=== PATIENT | female | born 1965 | race Caucasian/White ===

== ENCOUNTER 2017-09-15 00:12 | Outpatient (CLI) | payer MEDICAID, SELFPAY ==
--- NOTE | 2017-09-15 10:51 | DI.REPORT_ITS ---
SYMPTOMS/DIAGNOSIS: SCREENING, Z12.31, PREVENTATIVE CARE, Z00.00, FAMILY H/O BREAST CA, Z80.3 MAMMOGRAMS: Mammograms were interpreted according to the usual protocol including computer analysis with CAD system, tomosynthesis and C view imaging. Comparison is with prior mammograms. No masses or microcalcifications are seen. There is a biopsy clip again seen in the upper outer quadrant of the left breast. The skin and axillae are unremarkable. IMPRESSION: No evidence for malignancy. Yearly mammography is recommended. Category 1, breast density C. MQSA ASSESSMENT OF FINDINGS: Negative. Category 1. Patient will receive a letter notifying them of these results. Bi-RADS category C. The breasts are heterogeneously dense, which may obscure small masses.
== END 2017-09-15 00:13 ==
PROVIDERS: PCP Nurse Practitioner; Visit Provider Nurse Practitioner
DX: Z12.31 Encounter for screening mammogram for malignant neoplasm of breast (principal); Z80.3 Family history of malignant neoplasm of breast
CPT/HCPCS: 77063; 77067

== ENCOUNTER 2018-10-03 00:12 | Outpatient (CLI) | payer MEDICAID, SELFPAY ==
--- NOTE | 2018-10-03 09:50 | DI.MAMMO_ITS ---
SYMPTOMS/DIAGNOSIS: FAMILY H/O BREAST CA, Z80.3, SCREENING MAMMOGRAM: Mammograms were interpreted according to the usual protocol including computer analysis with CAD system, tomosynthesis and C view imaging. The breasts are heterogeneously dense. No dominant mass or clumped microcalcification identified in either breast. Current examination is compared with the previous examinations including September 2017 and there has been no gross interval change in appearance in comparison with the previous studies. CONCLUSION: No specific evidence of malignancy at this time. Routine screening examinations are suggested at yearly intervals due to the family history of breast carcinoma. Category 1, breast density category C. MQSA ASSESSMENT OF FINDINGS: Negative. Category 1. Patient will receive a letter notifying them of these results. Bi-RADS category C. The breasts are heterogeneously dense, which may obscure small masses.
== END 2018-10-03 00:32 ==
PROVIDERS: PCP Nurse Practitioner Family; Visit Provider Nurse Practitioner Family
DX: Z12.31 Encounter for screening mammogram for malignant neoplasm of breast (principal); Z80.3 Family history of malignant neoplasm of breast
CPT/HCPCS: 77063; 77067

== ENCOUNTER 2019-10-07 00:30 | Outpatient (CLI) | payer MEDICAID, SELFPAY ==
--- NOTE | 2019-10-07 | DI.MAMMO_ITS ---
EXAM: MAMMO SCREENING CLINICAL HISTORY: SCREENING,Z12.31 TECHNIQUE: Mammograms were interpreted according to the usual protocol including computer analysis w [employer] CAD system, tomosynthesis and C-view imaging. COMPARISON: FINDINGS: The breasts are heterogeneously dense. No dominant mass or clumped microcalcification is identified in either breast. The current examination is compared previous examinations including September 2018 an d there has been no gross interval change in appearance comparison the previous studies. An apparent biopsy clip is again seen in the upper outer quadrant of the left breast. IMPRESSION: No specific evidence of malignancy at this time. Routine screening examinations are suggested at yea rly intervals due to the family history of breast carcinoma. BI-RADS Category 1 - Negative Breast Density - Category C - Heterogeneously dense
== END 2019-10-07 00:50 ==
PROVIDERS: PCP Nurse Practitioner Family
DX: Z12.31 Encounter for screening mammogram for malignant neoplasm of breast (principal); R92.2 Inconclusive mammogram
CPT/HCPCS: 77063; 77067

== ENCOUNTER 2019-10-23 17:53 | Outpatient (REF) | payer MEDICAID, SELFPAY ==
--- NOTE | 2019-10-23 16:20 | PAPFT_PTH ---
PATIENT: Noemi London LOC: [facility]#:[id number] AGE/SX: 54/F ROOM: RE10/23/[address]: Minerva Cuellar : 1965 BED: DIS: 10/23/2019 SPEC #: [id number] RECD: 10/24/19 12:58 STATUS: PAULINA RENia #: [id number] RADHA: 10/23/19 16:[address]: Minerva Cuellar DEPT: [facility] Cytology RECD BY: Clare Painting Tissues: 1 - CX/ENDOCX FOR PAP SMEARS Procedures: PAP THIN PREP/UVM Screening Comments: [id number]
== END 2019-10-23 18:13 ==
LOC: NCHCN 17:53
PROVIDERS: PCP Nurse Practitioner Family; Visit Provider Nurse Practitioner Family
DX: Z12.4 Encounter for screening for malignant neoplasm of cervix (principal)
CPT/HCPCS: 88142

== ENCOUNTER 2020-04-22 13:30 | Outpatient (CLI) | payer MEDICAID, SELFPAY ==
--- NOTE | 2020-04-22 | DI.US_ITS ---
EXAM: US PELVIS TRANSVAGINAL CLINICAL HISTORY: RETAINED FOREIGN BODY Z18.9. TECHNIQUE: Transabdominal and transvaginal pelvic ultrasound was performed using standard protocol. COMPARISON: No exams were available for comparison FINDINGS: KIDNEYS: Kidneys are symmetric in size. No evidence of renal calculi. No evidence of hydronephrosis. No renal mass or cyst identified. UTERUS: Position: Anteverted. Size: 5.3 long by 3.2 AP by 3.9 transverse cm Endometrium: 0.6 cm. Normal for patient's menstrual status. Myometrium: Unremarkable. Cervix: Unremarkable. Other: There is a 0.7 cm linear echogenic focus in the lower uterine segment of the endometrial canal suspicious for retained foreign body. OVARIES: Right: 1.4 x 1 x 1.7 cm Cyst or mass: None. Left: 1.3 x 1 x 0.8 cm Cyst or mass: None. DOPPLER: Color: Symmetric and uniform flow to both ovaries. No hyperemia. Duplex: Normal ovarian arterial waveforms visualized. CUL-DE-SAC: Free fluid: None. Other: None. IMPRESSION: 1. There is a 0.7 cm linear echogenic focus in the lower uterine segment of the endometrial canal. T his is suspicious for a retained component of the IUD. 2. Normal sonographic appearance of the kidneys. 3. Normal-appearing uterus with endometrial stripe within normal limits. 4. Unremarkable bilateral ovaries. DATA REPOSITORY:
== END 2020-04-22 13:50 ==
PROVIDERS: PCP Nurse Practitioner Family; Visit Provider Nurse Practitioner Family
DX: Z18.89 Other specified retained foreign body fragments
CPT/HCPCS: 76830; 76856

== ENCOUNTER 2020-10-07 01:08 | Outpatient (CLI) | payer MEDICAID, SELFPAY ==
--- NOTE | 2020-10-07 | DI.MAMMO_ITS ---
Exam(s) MAMMO SCREENING EXAM: MAMMO SCREENING CLINICAL HISTORY: SCREENING, Z12.31. TECHNIQUE: Bilateral full field digital CC and MLO mammographic images were obtained with 3D tomosyn thesis and utilizing computer aided detection (CAD). COMPARISON: Prior mammograms dating back to 2013, the most recent being September 2019. FINDINGS: Biopsy marker clip again noted in the upper quadrant of the left breast with no new findings in this immediate vicinity. There are no new spiculated masses nor malignant appearing microcalcification groups. There is no significant architectural distortion nor skin thickening-retraction. IMPRESSION: No radiographic evidence of malignancy. BI-RADS Category 1 - Negative Breast Density - Category B - Scattered areas of fibroglandular density Breast density Category C or D implies that the patient has dense breast tissue. Dense breast tissue can make it harder to find cancer on a mammogram. Dense breast tissue is also associated with an incr eased risk of breast cancer. This information about the result of the mammogram report was provided to the patient to raise their awareness. Use this report when you speak with the patient about their risks for breast cancer, which includes their family history. At that time, you may recommend additional screening tests (Ultrasoun d or MRI) as these tests may add significant information. A negative radiographic report should not delay biopsy if a dominant or clinically suspicious mass is present. Up to ten percent of cancers are not identified on mammography. A negative report may reinforce clinical impression. Adenosis and dense breasts may obscure an underlying neoplasm. False positive reports average 6 to 10%. Patient will receive a letter notifying them of these results.
== END 2020-10-07 01:28 ==
PROVIDERS: PCP Nurse Practitioner Family; Visit Provider Nurse Practitioner Family
DX: Z12.31 Encounter for screening mammogram for malignant neoplasm of breast (principal)
CPT/HCPCS: 77063; 77067

== ENCOUNTER 2021-11-03 10:18 | Outpatient (REF) | payer MEDICAID, SELFPAY ==
[2021-11-03 15:45] LABS: HCT 39.9 % (36.0-46.0); HGB 12.6 g/dL (11.2-15.7); MCH 28.6 pg (27.0-33.0); MCHC 31.6 % (32.0-36.0); MCV 91 fL (80-95); MPV 11.2 fL (8.0-11.0); Platelet Count 315 10^3/uL (130-400); RBC 4.41 10^6/uL (3.93-5.22); RDW 13.8 % (11.7-14.6); RDW-SD 45.8 fL; WBC 5.64 10^3/uL (4.4-10.8)
[2021-11-03 16:21] LABS: ALT 20 U/L (14-59); AST 18 U/L (15-37); Alkaline Phosphatase 78 U/L (46-116); Anion Gap 7.7 mmol/L (3-11); BUN 12 mg/dL (7-18); Bilirubin, Total 0.6 mg/dL (0.2-1.0); CO2 30.3 mmol/L (21.0-32.0); CREATININE 0.7 mg/dL (0.55-1.02); Calcium 9.4 mg/dL (8.5-10.1); Calculated LDL 107 mg/dL (<100); Chloride 102 mmol/L (98-107); Cholesterol 227 mg/dL (<200); Estimated GFR 100.81 (mL/min/1.73m2); Glucose 95 mg/dL (74-106); HDL Cholesterol 108 mg/dL (40-60); Potassium 4.3 mmol/L (3.5-5.1); Sodium 140 mmol/L (136-145); Total Protein 7.1 g/dL (6.4-8.2); Triglyceride 60 mg/dL (<150)
== END 2021-11-03 10:19 | disposition home or self-care (01) ==
LOC: NCHCN 10:18
PROVIDERS: PCP Nurse Practitioner Family; Visit Provider Nurse Practitioner Family
DX: Z13.220 Encounter for screening for lipoid disorders (principal); Z13.228 Encounter for screening for other metabolic disorders; Z13.0 Encounter for screening for diseases of the blood and blood-forming organs and certain disorders involving the immune mechanism; Z00.00 Encounter for general adult medical examination without abnormal findings
CPT/HCPCS: 80053; 80061; 85027

== ENCOUNTER → 2021-11-17 01:20 | Outpatient (CLI) | payer MEDICAID, SELFPAY ==
--- NOTE | 2021-11-17 12:37 | DI.MAMMO_ITS ---
Exam(s) MAMMO SCREENING EXAM: MAMMO SCREENING CLINICAL HISTORY: SCREENING, Z12.31 TECHNIQUE: Mammograms were interpreted according to the usual protocol including computer analysis w Stereomood CAD system, tomosynthesis and C-view imaging. COMPARISON: 2013 through 2020 FINDINGS: The breasts are composed of scattered fibroglandular densities, Breast Density category B. No suspicious masses or suspicious microcalcifications are seen. A biopsy marker clip is again noted in the upper outer quadrant of the left breast. No skin thickening or abnormal axillary lymph nodes are seen. There has been no significant change from prior exams. IMPRESSION: BI-RADS Category 1, Negative mammogram Yearly screening mammography is recommended. Breast Density - Category B, scattered fibroglandular densities. A negative radiographic report should not delay biopsy if a dominant or clinically suspicious mass is present. Up to ten percent of cancers are not identified on mammography. A negative report may reinforce clinical impression. Adenosis and dense breasts may obscure an underlying neoplasm. False positive reports average 6 to 10%. Patient will receive a letter notifying them of these results.
== END ==
PROVIDERS: PCP Nurse Practitioner Family; Visit Provider Nurse Practitioner Family
DX: Z12.31 Encounter for screening mammogram for malignant neoplasm of breast (principal)
CPT/HCPCS: 77063; 77067

== ENCOUNTER 2022-11-04 14:08 | Outpatient (REF) | payer OTHER, SELFPAY ==
--- NOTE | 2022-11-04 08:46 | PAPFT_PTH ---
PATIENT: Noemi London LOC: [facility]#:[id number] AGE/SX: 57/F ROOM: RE11/04/[address]: Minerva Cuellar : 1965 BED: DIS: 11/04/2022 SPEC #: [id number] RECD: 11/04/22 16:58 STATUS: PAULINA RENia #: [id number] RADHA: 11/04/22 08:[address]: Minerva Cuellar DEPT: [facility] Cytology RECD BY: Clare Painting Tissues: 1 - CX/ENDOCX FOR PAP SMEARS Procedures: PAP THIN PREP/UVM Screening HPV DNA PROBE Comments: [id number] (CHLAMYDIA/GC)
[2022-11-04 14:25] LABS: HCT 43.1 % (36.0-46.0); HGB 14.2 g/dL (11.2-15.7); MCH 29.3 pg (27.0-33.0); MCHC 32.9 % (32.0-36.0); MCV 89 fL (80-95); MPV 10.9 fL (8.0-11.0); Platelet Count 323 10^3/uL (130-400); RBC 4.84 10^6/uL (3.93-5.22); RDW 13.4 % (11.7-14.6); RDW-SD 44.1 fL; WBC 7.16 10^3/uL (4.4-10.8)
[2022-11-04 14:34] LABS: ALT 25 U/L (14-59); AST 14 U/L (15-37); Albumin 4.1 g/dL (3.4-5.0); Alkaline Phosphatase 81 U/L (46-116); Anion Gap 7.1 mmol/L (3-11); BUN 20 mg/dL (7-18); Bilirubin, Total 0.7 mg/dL (0.2-1.0); CO2 29.9 mmol/L (21.0-32.0); CREATININE 0.7 mg/dL (0.55-1.02); Calcium 9.9 mg/dL (8.5-10.1); Calculated LDL 135 mg/dL (<100); Chloride 100 mmol/L (98-107); Cholesterol 247 mg/dL (<200); Estimated GFR 100.19 (mL/min/1.73m2); Glucose 95 mg/dL (74-106); HDL Cholesterol 96 mg/dL (40-60); Potassium 4.7 mmol/L (3.5-5.1); Sodium 137 mmol/L (136-145); Total Protein 7.2 g/dL (6.4-8.2); Triglyceride 80 mg/dL (<150)
[2022-11-07 12:55] LABS: Chlamydia Result Negative (Negative); GC Result Negative (Negative)
== END 2022-11-04 14:09 | disposition home or self-care (01) ==
LOC: NCHCN 14:08
PROVIDERS: PCP Nurse Practitioner Family; Visit Provider Nurse Practitioner Family
DX: Z00.00 Encounter for general adult medical examination without abnormal findings (principal); Z13.0 Encounter for screening for diseases of the blood and blood-forming organs and certain disorders involving the immune mechanism; Z13.1 Encounter for screening for diabetes mellitus; Z13.220 Encounter for screening for lipoid disorders; Z13.228 Encounter for screening for other metabolic disorders; Z12.4 Encounter for screening for malignant neoplasm of cervix; Z11.51 Encounter for screening for human papillomavirus (HPV)
CPT/HCPCS: 80053; 80061; 85027; 87491; 87591; 88142; 83036; 87624

== ENCOUNTER → 2022-11-21 02:34 | Outpatient (CLI) | payer OTHER, SELFPAY ==
--- NOTE | 2022-11-21 | DI.MAMMO_ITS ---
Exam(s) MAMMO SCREENING EXAM: MAMMO SCREENING CLINICAL HISTORY: SCREENING, Z12.31 TECHNIQUE: Mammograms were interpreted according to the usual protocol including computer analysis w Bright[employer]md CAD system, tomosynthesis and C-view imaging. COMPARISON: 2013 through 2021 FINDINGS: The breasts are composed of scattered fibroglandular densities, Breast Density category B. No suspicious masses or suspicious microcalcifications are seen. A biopsy marker is again noted in t he upper outer quadrant. No skin thickening or abnormal axillary lymph nodes are seen. There has been no significant change from prior exams. IMPRESSION: BI-RADS Category 1, Negative mammogram Yearly screening mammography is recommended. Breast Density - Category B, scattered fibroglandular densities. A negative radiographic report should not delay biopsy if a dominant or clinically suspicious mass is present. Up to ten percent of cancers are not identified on mammography. A negative report may reinforce clinical impression. Adenosis and dense breasts may obscure an underlying neoplasm. False positive reports average 6 to 10%. Patient will receive a letter notifying them of these results.
== END ==
PROVIDERS: PCP Nurse Practitioner Family; Visit Provider Nurse Practitioner Family
DX: Z12.31 Encounter for screening mammogram for malignant neoplasm of breast (principal)
CPT/HCPCS: 77063; 77067

== ENCOUNTER 2023-11-23 17:34 | Outpatient (REF) | payer OTHER, SELFPAY ==
--- OUTSIDE RECORDS SUMMARY | 2023-11-23 17:53 | XMS_ITS | Encounter Summary ---
Author Organization [facility] Address [address] [place] [address] Care Team Providers Care Graffiti Cleaner Name Role Phone Unavailable Primary Care Provider Unavailabl e Encounter Details Date Type Department Care Team (Latest Contact Info) Description 10/25/2019 Lab Requisition [facility] Pathology & Laboratory Medicine - [facility] [address] [place] [address] Minerva Cuellar FNP [address] [place] [phone] Encounter for general adult medical examination without abnormal findings; Encounter for screening for malignant neoplasm of cervix; Encounter for gynecological examination (general) (routine) without abnormal findings Social History Tobacco Use Types Packs/Day Years Used Date Smoking Tobacco: Never Assessed Sex and Gender Information Value Date Recorded Sex Assigned at Not on file Gender Identity Not on file Sexual Orientation Not on file documented as of this encounter Plan of Treatment Not on file documented as of this encounter Procedures Procedure Name Priority Date/Time Associated Diagnosis Comments PAP TEST Today 10/23/2019 16:20 EDT Encounter for general adult medical examination without abnormal findings Encounter for screening for malignant neoplasm of cervix Encounter for gynecological examination (general) (routine) without abnormal findings documented in this encounter Results * PAP TEST (10/23/2019 16:20 EDT) Specimens A. Cervix and/or Endocervix , ThinPrep Imaging System with Manual Evaluation 10/31/2019 15:34 EDT [facility] Specimen Adequacy Satisfactory for Evaluation - transformation zone component present 10/31/2019 15:34 EDT [facility] General Categorization Negative for intraepithelial lesion or malignancy 10/31/2019 15:34 EDT [facility] Attestation . 10/31/2019 15:34 EDT [facility] at 1534 Clinical History SEE ORDER COMMENTS 10/31/2019 15:34 EDT [facility] Performing Lab [facility] 10/31/2019 15:34 EDT [facility] Scanned Images 10/31/2019 15:34 EDT [facility] Papanicolaou smear specimen (specimen) CERVIX UTERI STRUCTURE / Unknown 10/23/2019 16:20 EDT 10/25/2019 11:56 EDT Minerva MARIE PATHOLOGY ORDERABLES [facility] [address] [place] [address] documented in this encounter Visit Diagnoses Diagnosis Encounter for general adult medical examination without abnormal findings Unspecified general medical examination Encounter for screening for malignant neoplasm of cervix Screening for malignant neoplasm of the cervix Encounter for gynecological examination (general) (routine) without abnormal findings documented in this encounter
--- OUTSIDE RECORDS SUMMARY | 2023-11-23 17:53 | XMS_ITS | Encounter Summary ---
Author Organization [facility] [place] [address] Care Team Providers Care Chief Commercial Officer Name Role Phone Rae Knight APRN Primary Care Provider + Reason for Visit * Reason Comments Skin Check * Consultation (Routine) - Specialty Diagnoses / Procedures Referred By Luly irizarry Referred To Contact Dermatology Diagnoses Other specified disorders of the skin and subcutaneous tissue Skin Lesions, Multiple Procedures Consult Rae Knight APRN [address] [place] [address] [facility] [address] [place] [address] Referral ID Status Reason Start Date Expiration Date V isits Requested Visits Authorized [id number] 06/21/2017 06/21/2018 1 1 Encounter Details Date Type Department Care Team (Late st Contact Info) Description 08/14/2017 9:30 AM EDT Office Visit Dermatology at [facility] [address] [place] [address] Call, Jose Alberto Covington MD [facility] [address] [place] [address] Neoplasm of uncertain behavior of skin Social History Tobacco Use Types Packs/Day Years Used Date Smoking Tobacco: Never Smokeless Tobacco: Never Sex and Gender Information Value Date Recorded Sex Assigned at Not on file Gender Identity Not on file Sexual Orientation Not on file documented as of this encounter Patient Instructions * Patient Instructions* HaSarah covingtonLOY lopez - 08/14/2017 9:30 AM EDT You had a biopsy of your skin (removal of a small piece of tissue for examination under a microscope). Keep area covered and moist with a band aid and Vaseline, change daily. The results will be available in about 7 days. Your doctor or nurse will tell you the results by phone or letter and plan any follow up treatment if necessary. documented in this encounter Progress Notes * Jose Alberto Costello - 08/22/2017 4:20 PM EDT Notified patient of results. Recommend wide local excision. Informed patient that they would be contacted for surgery Ammon Costello MD * Jose Alberto Costello - 08/14/2017 9:30 AM EDT Images from the original note were not included. DERMATOLOGY - NEW PATIENT NOTE Date of service: 08/14/2017 Noemi London : 1965, 52 y.o. Chief Complaint: Chief Complaint Patient presents with ??? Skin Check HPI: Noemi London is a 52 y.o. female with no significant past medical history pa referred byRae Knight with the following concerns: She requests a full skin exam. She has a pigmented papule on the right thigh that has been there over a year. It has been itchy at times but no bleeding or pain. There has been no treatment.She gets little white papules on the face under the eyes that are not tender. She had a mole removed on the right upper thigh years ago in [place], states that there was not further care taken regarding the area. Relevant Skin History: - Okay to leave detailed message with results? 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 No current facility-administered medications for this visit. Allergies: No Known Allergies Review of Systems: - General: Feels well. - Skin: No other skin concerns. Examination: - Constitutional: Patient was alert, well-appearing and in no noticeable distress. - Skin: Skin examination of the scalp, face, ears, neck, back, chest, axillae, abdomen, right and left upper extremities, right and left lower extremities, hands, feet, and buttocks was normal with the exception of the findings listed below. Genitalia not examined. Diagnosis/Skin findings/Assessment/Plan: 1. Dermatofibroma - firm pink papule with peripheral pigmentation on the right lateral thigh - Reviewed benign nature of these skin lesions. No treatment necessary. If they become irritated, punch removal is an option but would be trading the papule for a scar. - Patient opted for no treatment at this time. 2. Dysplastic Nevus vs. Melanoma - 6 mm pigmented macule, Left upper midline back, irregular pigment network on dermoscopy. -Joint decision to pursue biopsy at this time to further evaluate etiology. Shave??Biopsy Procedure Note:?? Location: left upper midline back The patient's consent was obtained. Risk of infection, scarring, nerve damage, pigment change, numbness, incomplete removal, recurrence, bleeding, pain and uncommonly so, allergic reaction to anesthesia were all reviewed. Alcohol preparation was used. Anesthesia obtained with 0.5% lidocaine without epinephrine. A??shave biopsy was obtained and the specimen was sent to pathology for histologic evaluation.??Hemostasis obtained. (AlCl and/or electrocautery). ??Vaseline and bandaid were applied. Wound care was reviewed.There were no complications; the pt. tolerated the procedure well. 3. Milia: Scattered white to yellow papules on the cheeks Asymptomatic. Counseled: Benign cysts. Usually self-resolve in months. Treatment options including but not limited to OTC milia extractor, topical retinoids, or cosmetic removal in the office (often not covered byinsurance) by milia extractor, incision and enucleation, cryotherapy, electrocautery. Answered all questions. Patient elects to try removal at home with OTC milia extractor. RTC: Pending biopsy results The following photos were obtained with patient consent: Note initiated by MARLI NG LPN. I performed the above scribed service and agree with the accuracy of the documentation in this encounter. Reviewed and signed by Jose Alberto Costello MD Resident in Dermatology [facility] Patient seen in conjunction with staff dry goods clerk: Raheel Palm MD Section of Dermatology [facility] * Raheel Palm MD - 08/14/2017 9:30 AM EDT I directly supervised Dr. Costello in the care of this patient. I saw and evaluated this patient with Dr. Costello. He presented the history and physical exam details to me, then we saw the patient together and I confirmed these findings. I agree with details as written. My physical examination confirms Dr. Costello's findings. The assessment and plan were formulated in discussion with me at the time of visit and I agree withthem as documented. RAHEEL PALM MD FAAD Staff Physician documented in this encounter Plan of Treatment Not on file documented as of this encounter Procedures Procedure Name Priority Date/Time Associated Diagnosis Comments SURGICAL PATHOLOGY REPORT Routine 08/14/2017 10:07 AM EDT SPECIMEN TO PATHOLOGY Routine 08/14/2017 10:07 AM EDT Neoplasm of uncertain behavior of skin documented in this encounter Results * Surgical Pathology Report (08/14/2017 10:07 AM EDT) Final Diagnosis [id number] ? Location: [facility] The signing pathologist has (i) examined the relevant preparation(s) for the specimen(s) and (ii) rendered or confirmed the diagnosis(es). . ?Surgical Pathology DIAGNOSIS Skin, left upper midline back, shave biopsy: ?? Atypical lentiginous junctional melanocytic proliferation, cannot exclude melanoma in situ airising in dysplastic nevus, extending close to the peripheral specimen edge and deep specimen edge along hair follicles (see discussion). Electronically signed by: ??Jr VELÁSQUEZ, PhD, Howiefercho Verified: ??08/17/2017 ?Dermatopathologist Performed at: ??-[facility] Dept. of Pathology, [place], [place] DISCUSSION The biopsy shows features of a background ?junctional dysplastic nevus, however, the melanocytes show lentiginous growth pattern with upwards pagetoid cells, ? melanoma in situ arising in dysplastic nevus cannot be excluded. ? This case was also reviewed by an additional intradepartmental dermatopathologist for consensus diagnosis. ADDITIONAL STUDIES Immunohistochemistry Studies: Formalin-fixed, paraffin-embedded tissue sections are studied using the polymer technique with appropriate positive and negative controls. ?These IHC studies provide the pathologist with adjunctive diagnostic information. Antibody specificity has been verified by testing antibodies on a series of in-house tissues with known immunohistochemical performance characteristics. The clinical interpretation of any antibody positive staining or its absence is evaluated within the context of clinical presentation, morphology, histopathological criteria and other diagnostic tests. Block ? Antibody ? Result (Positive/Negative) A1 ? Melan-A AEC ?Highlights melanocytes CLINICAL INFORMATION Specimen Submitted: A - Skin, left upper midline back, shave Clinical History and Diagnosis: 6 mm pigmented macule/atypical nevus vs melanoma SPECIMEN PROCESSING A - Labeled/Fixative: Patient demographics, formalin. Quantity/Size: Single, 1.0 x 0.7 x 0.1 cm. Tissue Description: Shave of white skin with a 0.6 x 0.5 cm brown macule. Sections/Processing: Inked and trisected. (T1) ??sns 08/17/2017 3:42 PM EDT [facility] SPECIMEN FROM SKIN / Unknown 08/14/2017 10:07 AM EDT 08/14/2017 10:07 AM EDT Jose Alberto Costello MD PATHOLOGY/CYTOLOGY O BENY Performing Organization Address [facility]/ZIP Co de Phone Number [facility] [place] [address] * Specimen to Pathology (08/14/2017 10:07 AM EDT) AP Specimen 08/14/2017 10:0 7 AM EDT 08/14/2017 1:15 PM EDT Narrative [facility] - 08/14/2017 1:15 PM EDT Specimen requisition ordered. ??Separate Pathology report to follow Resulting Agency Comment Spec In Lab Raheel Palm MD PATHOLOGY/CYTOLOGY O BENY Performing Organization Address [facility] [place] [address] documented in this encounter Visit Diagnoses Diagnosis Neoplasm of uncertain behavior of skin documented in this encounter Care Teams Chief Commercial Officer Relationship Specialty Start Date End Date Rae Knight APRN [address] [place] [address] PCP - General Family Medicine 06/21/17 11/03/20 documented as of this encounter
--- OUTSIDE RECORDS SUMMARY | 2023-11-23 17:53 | XMS_ITS | Clinical Summary ---
Author Organization [facility] Address [address] [place] [address] Care Team Providers Care Safety Deposit Clerk Name Role Phone Unavailable Primary Care Provider Unavailabl e Social History Tobacco Use Types Packs/Day Years Used Date Smoking Tobacco: Never Assessed Interpersonal Safety Answer Date Record ed Physically Hurt Never 01/07/2020 Verbally Threaten Not on file 01/07/2020 Sex and Gender Information Value Date Recorded Sex Assigned at Not on file Gender Identity Not on file Sexual Orientation Not on file Plan of Treatment Health Maintenance Due Date Last Done Comments Hepatitis C Screen 1965 Hepatitis B Vaccine (1 of 3 - 19+ 3-dose series) 02/24 COVID-19 Vaccine (2022- season) 2022
--- OUTSIDE RECORDS SUMMARY | 2023-11-23 17:53 | XMS_ITS | Referral Summary ---
Author Organization [facility] Address [address] [place] [address] Care Team Providers Care Industrial/Organizational Psychologist Name Role Phone Unavailable Primary Care Provider [...] Orientation Not on file Plan of Treatment Not on file
--- OUTSIDE RECORDS SUMMARY | 2023-11-23 17:53 | XMS_ITS | Encounter Summary ---
[place] [address] Care Team Providers Care Welding Systems And Equipment Repairer Name Role Phone Minerva Cuellar APRN Primary Care Provider [phone] Encounter Details Date Type Department Care Team (Latest Contact Info) Description 04/19/2022 Travel Social History Tobacco Use Types Packs/Day Years Used Date Smoking Tobacco: Never Smokeless Tobacco: Never Sex and Gender Information Value Date Recorded Sex Assigned at Not on file Gender Identity Not on file Sexual Orientation Not on file documented as of this encounter Plan of Treatment Not on file documented as of this encounter Visit Diagnoses Not on filedocumented in this encounter Care Teams Welding Systems And Equipment Repairer Relationship Specialty Start Date End Date Minerva Cuellar APRN [address] [place] [address] PCP - General Family Medicine 11/04/20 documented as of this encounter
--- OUTSIDE RECORDS SUMMARY | 2023-11-23 17:53 | XMS_ITS | Encounter Summary ---
Author Organization [facility] Address [facility] [place] [address] Care Team Providers Care Research Geologist Name Role Phone Rae Knight YURI Primary Care Provider + Encounter Details Date Type Department Care Team (Late st Contact Info) Description 08/22/2017 Telephone Dermatology at [facility] [address] [place] [id number] Call, Jose Alberto Rob MD [facility] [address] [place] [address] Social History Tobacco Use Types Packs/Day Years Used Date Smoking Tobacco: Never Smokeless Tobacco: Never Sex and Gender Information Value Date Recorded Sex Assigned at Not on file Gender Identity Not on file Sexual Orientation Not on file documented as of this encounter Miscellaneous Notes * Telephone Encounter - CallJoes Alberto - 08/22/2017 4:16 PM EDT Called patient to discuss the following biopsy results: Surgical Pathology DIAGNOSIS Skin, left upper midline back, shave biopsy: Atypical lentiginous junctional melanocytic proliferation, cannot exclude melanoma in situ airising in dysplastic nevus, extending close to the peripheral specimen edge and deepspecimenedge along hair follicles (see discussion). DISCUSSION The biopsy shows features of a background junctional dysplastic nevus, however, the melanocytes show lentiginous growth pattern with upwards pagetoid cells, melanoma in situarising indysplastic nevus cannot be excluded. This case was also reviewed by anadditional intradepartmental dermatopathologist for consensus diagnosis. We had a detailed discussion regarding the significance of these biopsy results. We first reviewed the etiology of a dysplastic nevus and then discussed that there is a general consensus that re-excision may not be necessary for atypical nevi with mild to moderate atypia. In contrast, patients withatypical nevi showing moderate to severe histologic atypia and positive biopsy margins such as hersmay benefit from re-excision to confirm the diagnosis and exclude melanoma. We discussed treatment options including observation vs. WLE, and joint decision to undergo wide local excision at this time. Scheduled follow up for 6 months for FBSE. documented in this encounter Plan of Treatment Not on file documented as of this encounter Visit Diagnoses Not on filedocumented in this encounter Care Teams Research Geologist Relationship Specialty Start Date End Date Rae Knight APRN [address] [place] [address] PCP - General Family Medicine 06/21/17 11/03/20 documented as of this encounter
--- OUTSIDE RECORDS SUMMARY | 2023-11-23 17:53 | XMS_ITS | Encounter Summary ---
Author Organization [facility] Address [facility] [place] [address] Care Team Providers Care Mixing And Molding Machine Operator Name Role Phone Minerva Cuellar APRN Primary Care Provider Reason for Visit * Consultation (Routine) - Closed Specialty Diagnoses / Procedures Referred By Contac t Referred To Contact Dermatology Diagnoses Disorder of the skin and subcutaneous tissue, unspecified DERMATOFIBROMA OF THE R HIP Minerva Cuellar APRN [address] [place] [address] [facility] Dermatology [address] [place] [address] Referral ID Status Reason Start Date Expiration Date V isits Requested Visits Authorized [id number] Closed Consult, [facility] PCP Updated and/or Approved 10/29/2020 10/29/2021 12 12 Encounter Details Date Type Department Care Team (Late st Contact Info) Description 01/18/2021 2:40 PM EST Office Visit Dermatology at [facility] [address] [place] [address] Jaya Kuo MD [facility] [address] [place] [address] AK (actinic keratosis); SK (seborrheic keratosis); Lin angioma; Dermatofibroma; Digital mucinous cyst Social History Tobacco Use Types Packs/Day Years Used Date Smoking Tobacco: Never Smokeless Tobacco: Never Sex and Gender Information Value Date Recorded Sex Assigned at Not on file Gender Identity Not on file Sexual Orientation Not on file documented as of this encounter Progress Notes * Jaya Kuo MD - 01/18/2021 2:40 PM EST Images from the original note were not included. DEPARTMENT OF DERMATOLOGY Medical Dermatology Clinic Provider: Jaya Kuo MD Patient's preferred name Noemi Preferred contact method for results []myDH []Letter []Phone: Y Detailed phone message OK? Y Are there any other people with whom we may discuss your care? Y PAST MEDICAL HISTORY If no, type N. If yes, type date, location, treatment Melanoma N Dysplastic nevi 09/13/2018 Severly dysplastic, S/P Excision upper back left of midline SCC N BCC N AKs N UV Exposure & Protection + history of blistering sunburn Other relevant past medical history (i.e. 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 If yes, include details below Allergy to lidocaine, epinephrine, Dermabond, chlorhexidine, or adhesives: N Bleeding disorder or blood thinners: N Implanted devices (Pacemaker, defibrillator, deep brain stimulator, cochlear implant): N History of Present Illness: Noemi London is a 55 y.o. year old. Patient returns to clinic today for evaluation of skin exam. -She has a lesion on the right upper thigh for ~5 years that is itchy otherwise not bothersome. Last visit at [facility] Derm: 04/18/2018 Last visit with this provider: Visit date not found Medications: Reviewed in eD-H Allergies: Reviewed in eD-H Skin Examination: Full skin examination: Patient asked to undress to their comfort level. Verbalized that the provider's preference is that patient removal all clothing and that the provider will not examine areas patient elects to keep covered. Examination of the scalp, hair, head, face, ears, neck, chest, axillae,abdomen, back, buttocks, and upper and lower extremities.Genitalia was not examined. Assessment/Plan # History Severe DN cannot exclude MIS. Left upper midline back, s/p excision 09/30 - Well healed linear scar - no clinical evidence of reoccurrence. #. Actinic Keratosis - Scaly irregular pink-brown papule located on nose X1 - Discussed etiology and treatment options with patient - Joint decision to pursue LN2 x 2 to lesion. Advised to return if lesion(s) do not resolve. Procedure Note: Procedure: Destruction of lesions with cryotherapy. Number: 1 Location: as above Discussed procedure and expectations including risks (including risk of hypopigmentation) and benefits. Verbal consent obtained. Frozen with LN2, 15-30 second thaw time, TWICE. There were no complications; the patient tolerated the procedure well. Post-procedure expectations and wound care were reviewed. #. Lin Angiomas - Multiple 0.2-0.4cm bright red, well-demarcated papules on the abdomen, chest, and back - Reassured of benign nature #. Solar lentigines EXAM: concentrated in sun-exposed areas (distal upper and lower extremities, shoulders, face), there are numerous, light brown macules with moth-eaten borders and homogeneous pigmentation. - Association with prior sun-exposure reviewed. - Recommend daily photoprotection with minimum SPF 30 or above, reapplied every 2 hours. #. Benign Nevi - Scattered medium-brown macules and papules on the trunk and extremities. - Reassured of benign appearance on exam today. - Reviewed ABCDEs of melanoma - Recommend daily sun protection with protective clothing and SPF 30+ #. Digital Mucus Cyst- subcutaneous soft papule overlying the joint on the left second digit Counseled: Benign cysts arises from degeneration in the connective tissue on left foot. Definitive management with surgery, but can also try ILK, cryotherapy or sclerotherapy. Handout given. -Joint decision to monitor; reassured #. Seborrheic Keratoses - Scattered brown and flesh colored waxy nummular stuck on plaques located on the trunk and extremities - Reassured of benign nature, return to clinic if these lesions become inflamed or irritating #. Dermatofibroma -scattered 0.3-0.5mm hyperpigmented papules with stellate center on dermoscopy and dimple sign on the right thigh X1& left shoulder X1 -pt reassured that this is a benign condition and no further intervention required Screening for Malignant Neoplasm - the ABCDEs of Melanoma were discussed with the patient. - patient advised on proper sun protection, use at least SPF 30 sunscreen preferably zinc or titanium oxide, avoid peak hours of the day between 10am-2pm when the sun is the brightest, wear sun-protective clothing. - recommended patient check skin regularly and return to discuss any concerning changes or new skinfindings. -apply sunscreen daily on the face, ears and neck and v-neck area Other items to document in the assessment/plan if relevant ??? Sun protection discussed (protective clothing and SPF30+ broad-spectrum sunscreen) RTC: 1 year for FSE []Note routed to tube buffer [x]Recall has been placed in scheduling system []Appointment scheduled at checkout I performed the above scribed service and agree with the accuracy of the documentation in this encounter. Reviewed and signed by: Jaya Kuo MD Dermatology [facility] Patient seen and evaluated with staff ornamental iron worker: Shelia Gutierrez MD Dermatology [facility] * Shelia Gutierrez MD - 01/18/2021 2:40 PM EST I directly supervised Dr. Kuo during this office visit. Dr. Kuo presented the history and physical exam to me. I then saw and examined this patient with Dr. Kuo . We reviewed the history and pertinent details and I confirmed the physical findings. I agree with the details of the history and physical exam as documented in Dr. Kuo's note. Shelia Gutierrez MD Staff Physician documented in this encounter Plan of Treatment Not on file documented as of this encounter Visit Diagnoses Diagnosis AK (actinic keratosis) Actinic keratosis SK (seborrheic keratosis) Other seborrheic keratosis Lin angioma Nevus, non-neoplastic Dermatofibroma Benign neoplasm of skin, site unspecified Digital mucinous cyst Ganglion, unspecified documented in this encounter Care Teams Mixing And Molding Machine Operator Relationship Specialty Start Date End Date Minerva Cuellar APRN [address] [place] [address] PCP - General Family Medicine 11/04/20 documented as of this encounter
--- OUTSIDE RECORDS SUMMARY | 2023-11-23 17:53 | XMS_ITS | Encounter Summary ---
Author Organization [facility] [place] [address] Care Team Providers Care Supervisor Electron Tube Processing Name Role Phone ChicaRae killian YURI Primary Care Provider + Reason for Visit * Reason Comments Procedure Encounter Details Date Type Department Care Team (Late st Contact Info) Description 09/13/2017 8:00 AM EDT Procedure visit Dermatology at [facility] [address] [place] [address] Alberto Palm MD [address] [facility] [place] [address] Dysplastic nevus (Primary Dx) Social History Tobacco Use Types Packs/Day Years Used Date Smoking Tobacco: Never Smokeless Tobacco: Never Sex and Gender Information Value Date Recorded Sex Assigned at Not on file Gender Identity Not on file Sexual Orientation Not on file documented as of this encounter Patient Instructions * Patient Instructions* Sarina Atkinson CMA - 09/13/2017 8:00 AM EDT Section of Dermatology POST OPERATIVE INSTRUCTIONS Wash your hand before changing the dressing. The dressing on the site should remain in place and dry until Monday The dressing should then be removed gently After removing the dressing, daily wound care should be performed as follows: Clean the wound with warm water and soap,then pat dry the area Apply either Vaseline or Aquaphor Ointment Cover the wound with a new dressing such as Telfa and Tape, or a Band-Aid Do not use peroxide or an antibiotic ointment /cream(Neosporin or Bacitracin) on the wound. For discomfort, you may take Tylenol or other non-aspirin pain medication for the first 48 hours, after 48 hours it is ok to switch to ibuprofen as needed. If bleeding should occur, pressure should be applied constantly for 15 minutes on the dressing withthe help of a towel, wash cloth, or piece of gauze. The sutures should be removed in 14 days. It is important that you avoid strenuous and/or vigorous activities, heavy lifting (More than 5-10 lbs), and bending for a period of 2 weeks If you have questions, please contact the office of Alberto Palm MD during the day at [phone] Nurse: Sarina After 5 PM and on weekends, please call the hospital number , and ask for the Teacher Specialist production operations manager. documented in this encounter Progress Notes * Alberto Palm MD - 09/19/2017 9:17 AM EDT [id number] ? Skin, upper back left of midline, ?? excision: ?1. ??Scar, consistent with prior surgical procedure. ?2. ??There is no residual atypical melanocytic proliferation (see discussion). DISCUSSION Slides of the patient ??'s prior biopsy ([id number]) have been reviewed. Completely excised. No additional treatment needed. Monitor site for recurrence of pigment in the scar; if this happens, return to clinic for re-evaluation. * Alberto Palm MD - 09/13/2017 8:00 AM EDT Images from the original note were not included. Visit for: Procedure History of Present Illness Noemi London is a 52 y.o. female here for treatment of a atypical nevus on the left upper midline back Interval Changes in Medications and Medical History Since Last Visit 08/14/17: No significant and pertinent interval changes. Allergies Review of patient's allergies indicates no known allergies. Medications currently has no medications in their medication list. Examination Pain 0/10. Mood is appropriate. Well developed, well-nourished in no apparent distress, alert and oriented to time, person, place and situation. Focused examination of the back significant for the following: ?? 5x7mm pink atrophic papule with slight scale on the upper back left of midline Pathology Results [id number] ?? Skin, left upper midline back, shave biopsy: ?Atypical lentiginous junctional melanocytic proliferation, cannot exclude melanoma in situ airising in dysplastic nevus, extending close to the peripheral specimen edge and deep specimen edge along hair follicles Procedure Discussed with patient treatment options and, after mutual decision to undergo this procedure, the risks of excision, including but not limited to recurrence, cosmesis (scar, dyspigmentation, scar spread), pain, keloid/hypertrophic scar, bleeding, infection, hematoma, nerve damage, and bruising. Patient verbally understands and elects excision with primary closure. [x] Consent: written informed consent signed. Surgeon: Alberto Palm MD, FAAD Suction Plate Roller Hand: Sarina Atkinson CMA Blood Thinner [x] Denies [] Yes or Breast Feeding [x] Denies [] Yes Defibrillator or Pacemaker [x] Denies [] Yes Prosthetic devices/implants [x] Denies [] Yes Take antibiotics prior to procedures [x] Denies [] Yes Time Out Performed: Full Name, , and site(s) confirmed with patient Procedure Excision with 5mm margins and primary intermediate linear repair Location Upper Back Left of Midline Pre-Operative Diagnosis Severely Dysplastic Nevus Anesthesia: 1% lidocaine+1:100,000 epinephrine, 5ml Sterile Prep Alcohol, Chloraprep Lesion 5x7 mm Defect 15x17 mm Final Length 45 mm Lesion was injected with 1% lidocaine with 1:100,000 epinephrine (volume above), and sterilized in the usual sterile fashion. The lesion was excised with 5mm margins to deep fat in an elliptical fashion. The specimen was sent to Pathology for further histologic examination. The wound edges were slightly undermined and hemostasis was achieved with electrocautery. Wound edges approximated with interrupted subcutaneous vertical mattress 4-0 vicryl sutures and running simple 4-0 prolene. A pressuredressing was placed. <1ml blood loss. No complications. Specimen(s): Placed in formalin and sent to Pathology for histologic examination. Post-op care: Vaseline, Pressure Dressing Post-operative pain: 0/10 Assessment and Plan Severely Dysplastic Nevus, Upper Back (Left) Wound care instructions provided. Remove pressure dressing in 48h. Ice pack over pressure dressing 10-20min every waking hour for 48h. No soaking baths or swimming for 96h. Wound care: Vaseline or antibiotic ointment, telfa, gauze, paper tape every 12-24h. No heavy lifting for three weeks. Pain: Ibuprofen 400mg po q6h and/or Tylenol 325-650mg po q6h prn pain Follow-up: in 12-14 days for suture removal or sooner as needed for infection or concern about the procedure site. Note initiated by CHANG Rios Dr has performed the documentation for this encounter. Alberto Palm MD FAAD Section of Dermatology [facility] documented in this encounter Plan of Treatment Not on file documented as of this encounter Procedures Procedure Name Priority Date/Time Associated Diagnosis Comments SPECIMEN TO PATHOLOGY Routine 09/13/2017 8:54 AM EDT Dysplastic nevus SURGICAL PATHOLOGY REPORT Routine 09/13/2017 8:53 AM EDT documented in this encounter Results * Specimen to Pathology (09/13/2017 8:54 AM EDT) AP Specimen 09/13/2017 8:54 AM EDT 09/13/2017 1:40 PM EDT Narrative [facility] - 09/13/2017 1:40 PM EDT Specimen requisition ordered. ??Separate Pathology report to follow Resulting Agency Comment Spec In Lab Alberto Palm MD PATHOLOGY/CYTOLOGY O RDERABLES [facility] [place] [address] * Surgical Pathology Report (09/13/2017 8:53 AM EDT) Final Diagnosis [id number] ? Location: [facility] The signing pathologist has (i) examined the relevant preparation(s) for the specimen(s) and (ii) rendered or confirmed the diagnosis(es). . ?Surgical Pathology DIAGNOSIS Skin, upper back left of midline, ?? excision: ?? 1. ??Scar, consistent with prior surgical procedure. ?? 2. ??There is no residual atypical melanocytic proliferation (see discussion). Electronically signed by: ??Jr VELÁSQUEZ, PhD, Claudine Verified: ??09/18/2017 ?Dermatopatholog ist Performed at: ??-[facility] Dept. of Pathology, [place], [place] DISCUSSION Slides of the patient ??'s prior biopsy ([id number]) have been reviewed. CLINICAL INFORMATION Specimen Submitted: A - Upper back left of midline, excision (1) Clinical History and Diagnosis: Severely dysplastic nevus 5 x 7 mm pink atrophic papule with slight scale, [id number] SPECIMEN PROCESSING A - Labeled/Fixative: L upper midline back, formalin. Quantity/Size: Single, 3.2 x 1.1 x 0.9 cm. Tissue Description: Unoriented elliptical excision of seay skin with a central 0.7 x 0.5 cm scar. Sections/Processi ng: ?? Inked and serially sectioned with the tips in (1) and the central sections in (2-5), (3-4) scar ??. (T5) ??alan 09/18/2017 5:57 PM EDT [facility] SPECIMEN FROM SKIN / Unknown 09/13/2017 8:53 AM EDT 09/13/2017 8:53 AM EDT Alberto Palm MD PATHOLOGY/CYTOLOGY O [place] [facility] [place] [address] documented in this encounter Visit Diagnoses Diagnosis Dysplastic nevus- Primary Benign neoplasm of skin, site unspecified documented in this encounter Care Teams Supervisor Electron Tube Processing Relationship Specialty Start Date End Date Rae Knight APRN [address] [place] [address] PCP - General Family Medicine 06/21/17 11/03/20 documented as of this encounter
--- OUTSIDE RECORDS SUMMARY | 2023-11-23 17:53 | XMS_ITS | Encounter Summary ---
Author Organization [facility] [place] [address] Care Team Providers Care Hydraulic Boom Operator Name Role Phone Rae Knight APRN Primary Care Provider + Encounter Details Date Type Department Care Team (Late st Contact Info) Description 08/21/2017 Telephone Dermatology at [facility] [address] [place] [id number] Jose Alberto Costello MD [facility] [address] [address] Social History Tobacco Use Types Packs/Day Years Used Date Smoking Tobacco: Never Smokeless Tobacco: Never Sex and Gender Information Value Date Recorded Sex Assigned at Not on file Gender Identity Not on file Sexual Orientation Not on file documented as of this encounter Miscellaneous Notes * Telephone Encounter - Jose Alberto Costello - 08/21/2017 7:00 PM EDT Called patient, limited service and unable to understand the patient on the other line. Called Tyler, who is out of town and asked if he would inform the patient that I will try to contact the patient in the coming days again from a land line. He appreciated the call and agreed to inform her. documented in this encounter Plan of Treatment Not on file documented as of this encounter Visit Diagnoses Not on filedocumented in this encounter Care Teams Hydraulic Boom Operator Relationship Specialty Start Date End Date Rae Knight APRN [address] [place] [address] PCP - General Family Medicine 06/21/17 11/03/20 documented as of this encounter
--- OUTSIDE RECORDS SUMMARY | 2023-11-23 17:53 | XMS_ITS | Encounter Summary ---
Author Organization [facility] Address [address] [place] [address] Care Team Providers Care Melangeur Operator Name Role Phone Unavailable Primary Care Provider Unavailabl e Encounter Details Date Type Department Care Team (Late st Contact Info) Description 11/04/2022 Lab Requisition [facility] Pathology & Laboratory Medicine - [facility] [address] [place] [address] Outr Resulting Lab, Provider Social History Tobacco Use Types Packs/Day Years [...] Procedure Name Priority Date/Time Associated Diagnosis Comments CHLAMYDIA/N. GONORRHOEAE AMPLIFIED NUCLEIC ACID, THINPREP Today 11/04/2022 8:46 EDT documented in this encounter Results * CHLAMYDIA/N. GONORRHOEAE AMPLIFIED RNA, THINPREP (11/04/2022 8:46 EDT) Neisseria gonorrhoeae Result Negative Negative 11/07/2022 12:50 EDT [facility] Chlamydia trachomatis Result Negative Negative 11/07/2022 12:50 EDT [facility] Pap Test CERVIX UTERI STRUCTURE / Unknown 11/04/2022 8:46 EDT 11/07/2022 8:03 EDT Provider Outr Resulting Lab MICROBIOLOGY - GENERAL ORDERABLES [facility] [address] [place] [address] documented in this encounter Visit Diagnoses Not on filedocumented in this encounter
--- OUTSIDE RECORDS SUMMARY | 2023-11-23 17:53 | XMS_ITS | Clinical Summary ---
Author Organization [place] [address] Care Team Providers Care Web Mobile Designer Name Role Phone Minerva Cuellar APRN Primary Care Provider [phone] Allergies No known active allergies Medications Medication Sig Dispensed Refills Start Date End Date Status halobetasol (ULTRAVATE) 0.05 % Ointment Apply to areas of psoriasis twice daily for 21 days on, take one week off and repeat as needed 50 g 3 04/18/2018 Active Active Problems No known active problems Social History Tobacco Use Types Packs/Day Years Used Date Smoking Tobacco: Never Smokeless Tobacco: Never Sex and Gender Information Value Date Recorded Sex Assigned at Not on file Gender Identity Not on file Sexual Orientation Not on file Plan of Treatment Health Maintenance Due Date Last Done Comments CT Colonography 1965 Colonoscopy 1965 Colorectal Cancer Screening 1965 FIT DNA 1965 FIT 1965 Sigmoidoscopy (10 year) with FIT yearly 1965 Sigmoidoscopy 1965 HIV screen 02/24/1982 Hepatitis C Screening 02/24/1982 Hepatitis B vaccine (0-59 yrs) (1) 02/24/1983 Tetanus/Diphtheria/Pertussis Vaccines (1 - Tdap) 02/24 HPV test 02/24/1994 PAP Smear 02/24/1994 Breast Cancer Share Decision Needed 2004 Breast Cancer screening 2004 Zoster vaccine (1 of 2) 02/24/2014 Advance Directive 02/24/2019 Covid-19 Vaccine (1 - 2022-24 season) 2023 Influenza (Flu) vaccine (1 o f 1 - Influenza standard series) 10/15/2023 Care Teams Web Mobile Designer Relationship Specialty Start Date End Date Minerva Cuellar APRN [address] [place], [place] [address] PCP - General Family Medicine 11/04/20
--- OUTSIDE RECORDS SUMMARY | 2023-11-23 17:53 | XMS_ITS | Encounter Summary ---
[place] [address] Care Team Providers Care News Operations Manager Name Role Phone Eugene Raetatiana WELCH Primary Care Provider + Encounter Details Date Type Department Care Team (Late st Contact Info) Description 09/20/2017 Telephone Dermatology at [facility] [address] [place] [address] Alberto Palm MD [address] [facility] [place] [address] Social History Tobacco Use Types Packs/Day Years Used Date Smoking Tobacco: Never Smokeless Tobacco: Never Sex and Gender Information Value Date Recorded Sex Assigned at Not on file Gender Identity Not on file Sexual Orientation Not on file documented as of this encounter Miscellaneous Notes * Telephone Encounter - Lizeth Mendenhall LPN - 09/20/2017 2:20 PM EDT Called patient to discuss pathology: [id number] ? Skin, upper back left of midline, ?? excision: ?1. ??Scar, consistent with prior surgical procedure. ?2. ??There is no residual atypical melanocytic proliferation (see discussion). ?? Completely excised. No additional treatment needed. Monitor site for recurrence of pigment in the scar; if this happens, return to clinic for re-evaluation. Patient verbalizes understanding. Advised patient to call with any further questions or concerns. ? * Telephone Encounter - Lizeth Mendenhall LPN - 09/20/2017 2:20 PM EDT ----- Message from Alberto Palm MD sent at 09/19/2017 9:17 AM EDT ----- [id number] ? Skin, upper back left of midline, ?? excision: ?1. ??Scar, consistent with prior surgical procedure. ?2. ??There is no residual atypical melanocytic proliferation (see discussion). DISCUSSION Slides of the patient ??'s prior biopsy ([id number]) have been reviewed. Completely excised. No additional treatment needed. Monitor site for recurrence of pigment in the scar; if this happens, return to clinic for re-evaluation. documented in this encounter Plan of Treatment Not on file documented as of this encounter Visit Diagnoses Not on filedocumented in this encounter Care Teams News Operations Manager Relationship Specialty Start Date End Date Rae Knight APRN [address] [place] [address] PCP - General Family Medicine 06/21/17 11/03/20 documented as of this encounter
--- OUTSIDE RECORDS SUMMARY | 2023-11-23 17:53 | XMS_ITS | Encounter Summary ---
[place] [address] Care Team Providers Care Pie Filling Mixer Name Role Phone Rea Knight APRN Primary Care Provider + Encounter Details Date Type Department Care Team (Late st Contact Info) Description 09/05/2017 Telephone Dermatology at [facility] [address] [place] [address] Alberto Palm MD [address] [facility] [address] Social History Tobacco Use Types Packs/Day Years Used Date Smoking Tobacco: Never Smokeless Tobacco: Never Sex and Gender Information Value Date Recorded Sex Assigned at Not on file Gender Identity Not on file Sexual Orientation Not on file documented as of this encounter Miscellaneous Notes * Telephone Encounter - Lizeth Mendenhall LPN - 09/05/2017 2:02 PM EDT Telephone Encounter Pre-Procedure Screening and Review Noemi London is a 52 y.o. female is scheduled for treatment of a atypical lentiginous junctional melanocytic proliferation on he left upper midline back. Patient was unavailable, message left for her to return this phone call at earliest convenience at [phone]. documented in this encounter Plan of Treatment Not on file documented as of this encounter Visit Diagnoses Not on filedocumented in this encounter Care Teams Pie Filling Mixer Relationship Specialty Start Date End Date Rae Knight APRN [address] [place] [address] PCP - General Family Medicine 06/21/17 11/03/20 documented as of this encounter
--- OUTSIDE RECORDS SUMMARY | 2023-11-23 17:53 | XMS_ITS | Encounter Summary ---
Author Organization [facility] Address [facility] [place] [address] Care Team Providers Care Foreman/Pile Driving And Erection Name Role Phone Eugene Raetatiana WELCH Primary Care Provider + Reason for Visit * Reason Comments Skin Check Encounter Details Date Type Department Care Team (Late st Contact Info) Description 04/18/2018 11:30 AM EST Office Visit Dermatology at [place] [address] [place] [address] Jose Alberto Costello MD [facility] [address] [place] [address] Weathering nodule, unspecified laterality; Dermatofibroma; History of melanoma in situ; Psoriasis Social History Tobacco Use Types Packs/Day Years Used Date Smoking Tobacco: Never Smokeless Tobacco: Never Sex and Gender Information Value Date Recorded Sex Assigned at Not on file Gender Identity Not on file Sexual Orientation Not on file documented as of this encounter Progress Notes * Jose Alberto Costello - 04/18/2018 11:30 AM EST Images from the original note were not included. DERMATOLOGY - ESTABLISHED PATIENT FOLLOW-UP Date of service: 04/18/2018 Noemi London : 1965, 53 y.o. Chief Complaint: Chief Complaint Patient presents with ??? Skin Check HPI: Noemi London is a 53 y.o. female last seen by myself on 08/14/2017. Ms. London returns today for a full skin exam. Patient has a DF on her right lateral thigh that is itchy. Has one area on the leg that is itchy, has applied halobetasol previously with good results. Patient denies any fever, chills, weight loss or new lumps and bumps. Relevant Skin History: - Okay to leave detailed message with results? Yes - Psoriasis - 08/14/17: Skin, left upper midline back, shave biopsy: Atypical lentiginous junctional melanocytic proliferation, cannot exclude melanoma in situ airising in dysplastic nevus, extending close to the peripheral specimen edge and deep specimen edge along hair follicles, s/p excision ?? Family History: none ?? 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 halobetasol (ULTRAVATE) 0.05 % Ointment Apply topically 2 times daily. No current facility-administered medications for this visit. Allergies: No Known Allergies Review of Systems: - General: Feels well. - Skin: No other skin concerns. Examination: - Constitutional: Patient was alert, well-appearing and in no noticeable distress. - Skin: Skin examination of the scalp, face, ears, neck, back, chest, abdomen, right and left upperextremities, right and left lower extremities, hands, feet, and buttocks was normal with the exception of the findings listed below. Genitalia not examined. - A female nurse was present and on standby during my examination. Diagnosis/Skin findings/Assessment/Plan: # Weathering Nodules: Firm white to skin colored papules on the bialteral superior helix. - Reassurance and encouraged sun protection # Dermatofibroma - firm pink papule with peripheral pigmentation on the right lateral thigh x1. - Reviewed benign nature of these skin lesions. No treatment necessary. If they become irritated, punch removal is an option - Patient opted for no treatment at this time. # History MIS. Left upper midline back, s/p excision 09/30 - Well healed linear scar - no clinical evidence of reoccurrence. RTC: 1 year full skin exam Note initiated by Nora Alvarez LPN. I, Nora Alvarez LPN, have performed the documentation for this encounter in the presence of and acting as a scribe for Jose Alberto Costello MD. I performed the services which were documented by the scribe, and I agree with the accuracy of the documentation in this encounter. Jose Alberto Costello MD Reviewed and signed by: Jose Alberto Costello MD Resident in Dermatology [facility] Patient seen and evaluated with staff stem crusher: Ruel Mendoza MD Section of Dermatology [facility] * Ruel Mendoza MD - 04/18/2018 11:30 AM EST I directly supervised Dr. Costello during this office visit. Dr. Costello presented the history and physical exam to me. I then saw and examined this patient with Dr. Costello. We reviewed the history and pertinent details and I confirmed the physical findings. I agree with the details of the history and physical exam as documented in Dr. Costello's note. RUEL MENDOZA MD Staff Physician documented in this encounter Plan of Treatment Not on file documented as of this encounter Visit Diagnoses Diagnosis Weathering nodule, unspecified laterality Dermatofibroma Benign neoplasm of skin, site unspecified History of melanoma in situ Personal history of malignant melanoma of skin Psoriasis Other psoriasis documented in this encounter Care Teams Foreman/Pile Driving And Erection Relationship Specialty Start Date End Date Rae Knight APRN [address] [place] [address] PCP - General Family Medicine 06/21/17 11/03/20 documented as of this encounter
--- OUTSIDE RECORDS SUMMARY | 2023-11-23 17:53 | XMS_ITS | Encounter Summary ---
Author Organization [facility] Address [facility] [place] [address] Care Team Providers Care Forklift Truck Mechanic Name Role Phone Minerva Cuellar YURI Primary Care Provider [phone] Encounter Details Date Type Department Care Team (Late st Contact Info) Description 06/03/2022 3:20 PM EDT Office Visit Dermatology at [facility] [address] [place] [address] Jillian Bowens MD [facility] [address] [place] [address] Lentigines; Dermatofibroma; Vascular birthmark; Multiple benign melanocytic nevi of upper and lower extremities and trunk Social History Tobacco Use Types Packs/Day Years Used Date Smoking Tobacco: Never Smokeless Tobacco: Never Sex and Gender Information Value Date Recorded Sex Assigned at Not on file Gender Identity Not on file Sexual Orientation Not on file documented as of this encounter Progress Notes * Jillian Bowens MD - 06/03/2022 3:20 PM EDT Images from the original note were not included. DEPARTMENT OF DERMATOLOGY Medical Dermatology Clinic Provider: Jillian Bowens MD Patient's preferred name Noemi Preferred contact method for results [x]Phone []myD-H []Letter Detailed phone message OK? Yes Are there any other people with whom we may discuss your care? 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 Patient returns to clinic today for a full skin exam.patient states the following concerns: -Patient denies any lesions changing in color or shape, itchy, bleeding spontaneously or tender to the touch. - patient states that she has concerned about her previous Last visit at Dermatology: 01/18/2021 Last visit with this provider: 01/18/2021 Medications: Reviewed in eD-H Allergies: Reviewed in eD-H Skin Examination: Full skin examination: Patient asked to undress to their comfort level. Verbalized that the provider's preference is that patient remove all clothing and that the provider will not examine areas patient elects to keep covered. Examination of the scalp, hair, head, face, ears, neck, chest, axillae, abdomen, back, buttocks, and upper and lower extremities was normal with the exception of the findings below. Genitalia not examined. Assessment/Plan #. Lentigines - Scattered light-brown, evenly pigmented, well-demarcated macules on sun-exposed areas of the trunk and extremities. - No worrisome pigmented lesions. Discussed benign nature of lesions and provided reassurance. Willcontinue to monitor. #. Dermatofibroma - Firm papule, centrally raised and sclerotic, with peripheral hyperpigmentation and dimpling with lateral pressure on the right upper leg, left upper back, and the posterior left leg. - Discussed that these are benign fibrous (scar-like) lesions. No treatment necessary. 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 Benign Nevi - Scattered medium brown, evenly pigmented macules and papules on the trunk and extremities with reassuring pigment pattern on dermoscopy. - Discussed benign nature of lesions and provided reassurance. Will continue to monitor. Other: ??? N/A RTC: 1 year for FSE []Note routed to pocket secretary assembler []Recall placed in scheduling system []Appointment scheduled at checkout Scribe attestation: THOR Gonzalez has performed the documentation for this encounter in the presence of and acting as a scribe for Jillian Bowens MD. I performed the above scribed service and agree with the accuracy of the documentation in this encounter. Reviewed and signed by: Jillian Bowens MD Dermatology [facility] Patient seen and evaluated with staff brand ambassador: Raheel Palm MD Dermatology [facility] * Raheel Palm MD - 06/03/2022 3:20 PM EDT I directly supervised Dr. Bowens in the care of this patient. I saw and evaluated this patient with Dr. Bowens. She presented the history and physical exam detailsto me, then we saw the patient together and I confirmed these findings. I agree with details as written. My physical examination confirms her findings. The assessment and plan were formulated in discussion with me at the time of visit and I agree withthem as documented. RAHEEL PALM MD FAAD Staff Physician documented in this encounter Plan of Treatment Not on file documented as of this encounter Visit Diagnoses Diagnosis Lentigines Other dyschromia Dermatofibroma Benign neoplasm of skin, site unspecified Vascular birthmark Congenital vascular hamartomas Multiple benign melanocytic nevi of upper and lower extremities and trunk documented in this encounter Care Teams Forklift Truck Mechanic Relationship Specialty Start Date End Date Minerva Cuellar APRN [address] [place] [address] PCP - General Family Medicine 11/04/20 documented as of this encounter
--- OUTSIDE RECORDS SUMMARY | 2023-11-23 17:53 | XMS_ITS | Encounter Summary ---
[place] [address] Care Team Providers Care Video Player Mechanic Name Role Phone Minerva Cuellar APRN Primary Care Provider [phone] Encounter Details Date Type Department Care Team (Latest Contact Info) Description 06/03/2022 Travel Social History Tobacco Use Types Packs/Day [...] on filedocumented in this encounter Care Teams Video Player Mechanic Relationship Specialty Start Date End Date Minerva Cuellar APRN [address] [place] [address] PCP - General Family Medicine 11/04/20 documented as of this encounter
--- OUTSIDE RECORDS SUMMARY | 2023-11-23 17:53 | XMS_ITS | Encounter Summary ---
Author Organization [facility] Address [address] [place] [address] Care Team Providers Care Weatherstrip Machine Operator Name Role Phone Unavailable Primary Care Provider Unavailabl e Encounter Details Date Type Department Care Team (Latest Contact Info) Description 11/07/2022 Lab Requisition [facility] Pathology & Laboratory Medicine - [facility] [address] [place] [address] Minerva Cuellar FNP [address] [place] [id number] Encounter for gynecological examination (general) (routine) without abnormal findings; Encounter for screening for malignant neoplasm of cervix; Encounter for general adult medical examination without abnormal findings Social History Tobacco Use [...] Date/Time Associated Diagnosis Comments PAP TEST Today 11/04/2022 8:46 EDT Encounter for gynecological examination (general) (routine) without abnormal findings Encounter for screening for malignant neoplasm of cervix Encounter for general adult medical examination without abnormal findings HPV DNA DETECTION WITH GENOTYPING, PCR Today 11/04/2022 8:46 EDT Encounter for gynecological examination (general) (routine) without abnormal findings Encounter for screening for malignant neoplasm of cervix Encounter for general adult medical examination without abnormal findings documented in this encounter Results * HUMAN PAPILLOMAVIRUS (HPV) DETECTION-HIGH RISK TYPES (11/04/2022 8:46 EDT) HPV other High Risk types, PCR Negative Negative 11/17/2022 17:53 [facility] Comment:No E6 or E7 mRNA is detected from HPV types 16,18,31,33,35,39,45,51,52,56,58,59,66, and 68 by outsole leveler mediated amplification. Pap Test CERVIX UTERI STRUCTURE / Unknown 11/04/2022 8:46 EDT 11/17/2022 9:30 EDT Minerva Cuellar MANAGER OF MANUFACTURING MICROBIOLOGY - GENER AL ORDERABLES [facility] [address] [place] [address] * PAP TEST (11/04/2022 8:46 EDT) Specimens A. Cervix and/or Endocervix , ThinPrep Imaging System with Manual Evaluation 11/17/2022 17:53 [facility] Specimen Adequacy Satisfactory for Evaluation - assessment of transformation zone component not applicable ( e.g. atrophy, vaginal sample, hysterectomy) Scant squamous epithelial component due to contaminant, possibly lubricant or other vaginal contaminant. 11/17/2022 17:53 [facility] General Categorization Negative for intraepithelial lesion or malignancy 11/17/2022 17:53 [facility] Attestation . 11/17/2022 17:53 [facility] at 1753 Clinical History See below 11/18/19 17:53 [facility] HPV The result for the Human Papillomavirus (HPV) Detection-High Risk Types is Negative. No E6 or E7 mRNA is detected from HPV types 16,18,31,33,35,39 ,45,51,52,56,58,5 9,66, and 68 by outsole leveler mediated amplification.Lacy ting was performed on specimen [id number] and was resulted on 11/17/2022 1753 EDT by TYLER, LAB INSTRUMENT RESULTS IN 11/17/2022 17:53 T [facility] Performing Lab [facility] 11/17/2022 17:53 EDT [facility] Scanned Images 11/17/2022 17:53 EDT [facility] Pap Test CERVIX UTERI STRUCTURE / Unknown 11/04/2022 8:46 EDT 11/07/2022 14:38 EDT Minerva Cuellar MANAGER OF MANUFACTURING PATHOLOGY ORDERABLES Performing Organization Address City/State/[facility] Co de Phone Number [facility] [address] [place] [address] documented in this encounter Visit Diagnoses Diagnosis Encounter for gynecological examination (general) (routine) without abnormal findings Encounter for screening for malignant neoplasm of cervix Screening for malignant neoplasm of the cervix Encounter for general adult medical examination without abnormal findings Unspecified general medical examination documented in this encounter
[2023-11-23 21:18] LABS: HGB 12.9 g/dL (11.2-15.7); MCH 28.7 pg (27.0-33.0); MCHC 32.3 % (32.0-36.0); MCV 89 fL (80-95); MPV 11.2 fL (8.0-11.0); Platelet Count 336 10^3/uL (130-400); RBC 4.49 10^6/uL (3.93-5.22); RDW 13.7 % (11.7-14.6); RDW-SD 44.6 fL; WBC 6.18 10^3/uL (4.4-10.8)
[2023-11-23 21:35] LABS: ALT 24 U/L (14-59); AST 21 U/L (15-37); Albumin 4.2 g/dL (3.4-5.0); Alkaline Phosphatase 75 U/L (46-116); Anion Gap 8.7 mmol/L (3-11); BUN 15 mg/dL (7-18); Bilirubin, Total 0.66 mg/dL (0.2-1.0); CO2 29.3 mmol/L (21.0-32.0); CREATININE 0.7 mg/dL (0.55-1.02); Calcium 9.6 mg/dL (8.5-10.1); Calculated LDL 118 mg/dL (<100); Chloride 105 mmol/L (98-107); Cholesterol 227 mg/dL (<200); Estimated GFR 99.57 (mL/min/1.73m2); Glucose 87 mg/dL (74-106); HDL Cholesterol 96 mg/dL (40-60); Potassium 4.5 mmol/L (3.5-5.1); Sodium 143 mmol/L (136-145); Total Protein 6.9 g/dL (6.4-8.2); Triglyceride 66 mg/dL (<150)
== END 2023-11-23 17:35 | disposition home or self-care (01) ==
LOC: NCHCN 17:34
PROVIDERS: PCP Nurse Practitioner Family; Visit Provider Nurse Practitioner Family
DX: Z00.00 Encounter for general adult medical examination without abnormal findings (principal); R73.03 Prediabetes
CPT/HCPCS: 80053; 80061; 85027; 83036

== ENCOUNTER 2023-12-08 00:34 | Outpatient (CLI) | payer OTHER, SELFPAY ==
--- OUTSIDE RECORDS SUMMARY | 2023-12-08 00:38 | XMS_ITS | Encounter Summary ---
Author Organization [facility] Address [facility] [place] [address] Care Team Providers Care Activities Officer Name Role Phone Minerva Cuellar YURI Primary Care Provider [phone] Encounter Details Date Type Department Care Team (Late st Contact Info) Description 06/03/2022 3:20 PM EDT Office Visit Dermatology at [facility] [address] [place] [address] Jillian Bowens MD [facility] [address] [place] [address] Lentigines; Dermatofibroma; Vascular birthmark; Multiple benign melanocytic [...] relevant family history No Social 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 I performed the above scribed service and agree with the accuracy of the documentation in this encounter. Reviewed and signed by: Jillian Bowens MD Dermatology [facility] Patient seen and evaluated with staff delivery rep: Raheel Palm MD Dermatology [facility] * Raheel Palm MD - 06/03/2022 3:20 [...] trunk documented in this encounter Care Teams Activities Officer Relationship Specialty Start Date End Date Minerva Cuellar APRN [address] [place] [address] PCP - General Family Medicine 11/04/20 documented as of this encounter
--- OUTSIDE RECORDS SUMMARY | 2023-12-08 00:38 | XMS_ITS | Clinical Summary ---
Author Organization [facility] [place] [address] Care Team Providers Care Glass Cut Off Tender Name Role Phone Minerva Cuellar APRN Primary Care Provider [phone] Allergies No known active allergies Medications Medication [...] - Influenza standard series) 10/15/2023 Care Teams Glass Cut Off Tender Relationship Specialty Start Date End Date Minerva Cuellar APRN [address] [place], [place] [address] PCP - General Family Medicine 11/04/20
--- OUTSIDE RECORDS SUMMARY | 2023-12-08 00:38 | XMS_ITS | Encounter Summary ---
[place] [address] Care Team Providers Care Spooler Operator Automatic Name Role Phone Eugene Raetatiana WELCH Primary Care Provider + Encounter Details Date Type Department Care Team (Late st Contact Info) Description 09/20/2017 Telephone Dermatology at [facility] [address] [place] [address] Alberto Palm MD [address] [facility] [place] [address] Social History Tobacco Use Types Packs/Day Years Used Date Smoking Tobacco: Never Smokeless Tobacco: Never Sex and Gender Information Value Date Recorded Sex Assigned at Not on file Gender Identity Not on file Sexual Orientation Not on file documented as of this encounter Miscellaneous Notes * Telephone Encounter - Lizeth Mendenhall LPN - 09/20/2017 2:20 PM EDT Called patient to discuss pathology: [id number] ? Skin, upper back left of midline, [...] sent at 09/19/2017 9:17 AM EDT ----- [id number] ? Skin, upper back left of midline, ?? excision: ?1. ??Scar, consistent with prior surgical procedure. ?2. ??There is no residual atypical melanocytic proliferation (see discussion). DISCUSSION Slides of the patient ??'s prior biopsy ([id number]) have been reviewed. Completely excised. No additional treatment needed. Monitor site for recurrence of pigment in the scar; if this happens, return to clinic for re-evaluation. documented in this encounter Plan of Treatment Not on file documented as of this encounter Visit Diagnoses Not on filedocumented in this encounter Care Teams Spooler Operator Automatic Relationship Specialty Start Date End Date Rae Knight APRN [address] [place] [address] PCP - General Family Medicine 06/21/17 11/03/20 documented as of this encounter
--- OUTSIDE RECORDS SUMMARY | 2023-12-08 00:38 | XMS_ITS | Encounter Summary ---
Author Organization [facility] Address [address] [place] [address] Care Team Providers Care Plant Physiology Teacher Name Role Phone Unavailable Primary Care Provider Unavailabl e Encounter Details Date Type Department Care Team (Late st Contact Info) Description 11/04/2022 Lab Requisition [facility] Pathology & Laboratory Medicine - [facility] [address] [place] [address] Outr Resulting Lab, Provider Social History Tobacco [...] gonorrhoeae Result Negative Negative 11/07/2022 12:50 EDT [facility] Chlamydia trachomatis Result Negative Negative 11/07/2022 12:50 EDT [facility] Pap Test CERVIX UTERI STRUCTURE / Unknown 11/04/2022 8:46 EDT 11/07/2022 8:03 EDT Provider Outr Resulting Lab MICROBIOLOGY - GENERAL ORDERABLES [facility] [address] [place] [address] documented in this encounter Visit Diagnoses Not on filedocumented in this encounter
--- OUTSIDE RECORDS SUMMARY | 2023-12-08 00:38 | XMS_ITS | Encounter Summary ---
Author Organization [facility] Address [address] [place] [address] Care Team Providers Care Offshore Diver Name Role Phone Unavailable Primary Care Provider Unavailabl e Encounter Details Date Type Department Care Team (Latest Contact Info) Description 10/25/2019 Lab Requisition [facility] Pathology & Laboratory Medicine - [facility] [address] [place] [address] Minerva Cuellar FNP [address] [place] [phone] Encounter for general adult medical examination without [...] System with Manual Evaluation 10/31/2019 15:34 EDT [facility] Specimen Adequacy Satisfactory for Evaluation - transformation zone component present 10/31/2019 15:34 EDT [facility] General Categorization Negative for intraepithelial lesion or malignancy 10/31/2019 15:34 EDT [facility] Attestation . 10/31/2019 15:34 EDT [facility] at 1534 Clinical History SEE ORDER COMMENTS 10/31/2019 15:34 EDT [facility] Performing Lab [facility] 10/31/2019 15:34 EDT [facility] Scanned Images 10/31/2019 15:34 EDT [facility] Papanicolaou smear specimen (specimen) CERVIX UTERI STRUCTURE / Unknown 10/23/2019 16:20 EDT 10/25/2019 11:56 EDT Minerva MARIE PATHOLOGY ORDERABLES [facility] [address] [place] [address] documented in this encounter Visit Diagnoses Diagnosis Encounter for general adult medical examination without abnormal findings Unspecified general medical examination Encounter for screening for malignant neoplasm of cervix Screening for malignant neoplasm of the cervix Encounter for gynecological examination (general) (routine) without abnormal findings documented in this encounter
--- OUTSIDE RECORDS SUMMARY | 2023-12-08 00:38 | XMS_ITS | Encounter Summary ---
[place] [address] Care Team Providers Care Charge Lpn Name Role Phone Minerva Cuellar APRN Primary Care Provider [phone] Encounter Details Date Type Department Care Team [...] on filedocumented in this encounter Care Teams Charge Lpn Relationship Specialty Start Date End Date Minerva Cuellar APRN [address] [place] [address] PCP - General Family Medicine 11/04/20 documented as of this encounter
--- OUTSIDE RECORDS SUMMARY | 2023-12-08 00:38 | XMS_ITS | Encounter Summary ---
Author Organization [facility] Address [facility] [place] [address] Care Team Providers Care Gang Ripsaw Operator Name Role Phone Minerva Cuellar APRN Primary Care Provider [phone] Reason for Visit * Consultation (Routine) - Closed Specialty Diagnoses / Procedures Referred By Contac t Referred To Contact Dermatology Diagnoses Disorder of the skin and subcutaneous tissue, unspecified DERMATOFIBROMA OF THE R HIP Minerva Cuellar APRN [address] [place] [address] [facility] [address] [place] [address] Referral ID Status Reason Start Date Expiration Date V isits Requested Visits Authorized [id number] Closed Consult, Test & Treat [facility] PCP Updated and/or Approved 10/29/2020 10/29/2021 12 12 Encounter Details Date Type Department Care Team (Late st Contact Info) Description 01/18/2021 2:40 PM EST Office Visit Dermatology at [facility] [address] [place] [address] Jaya Kuo MD 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 Last visit at [facility] Derm: 04/18/2018 Last visit with this [...] 1 year for FSE []Note routed to data warehousing engineer [x]Recall has been placed in scheduling system []Appointment scheduled at checkout I performed the above scribed service and agree with the accuracy of the documentation in this encounter. Reviewed and signed by: Jaya Kuo MD Dermatology [facility] Patient seen and evaluated with staff make up arranger: Shelia Gutierrez MD Dermatology [facility] * Shelia Gutierrez MD - 01/18/2021 2:40 [...] and physical exam as documented in Dr. Kou's note. Shelia Gutierrez MD Staff Physician documented in this encounter Plan of Treatment Not on file documented as of this encounter Visit Diagnoses Diagnosis AK (actinic keratosis) Actinic keratosis SK (seborrheic keratosis) Other seborrheic keratosis Lin angioma Nevus, non-neoplastic Dermatofibroma Benign neoplasm of skin, site unspecified Digital mucinous cyst Ganglion, unspecified documented in this encounter Care Teams Gang Ripsaw Operator Relationship Specialty Start Date End Date Minerva Cuellar APRN [address] [place] [address] PCP - General Family Medicine 11/04/20 documented as of this encounter
--- OUTSIDE RECORDS SUMMARY | 2023-12-08 00:38 | XMS_ITS | Clinical Summary ---
Author Organization [facility] Address [address] [place] [address] Care Team Providers Care Creative Services Specialist Name Role Phone Unavailable Primary Care Provider [...]
--- OUTSIDE RECORDS SUMMARY | 2023-12-08 00:38 | XMS_ITS | Encounter Summary ---
Author Organization [facility] Address [facility] [place] [address] Care Team Providers Care Assistant Professor Of Criminal Justice Name Role Phone Eugene Raetatiana WELCH Primary Care Provider + Reason for Visit * Reason Comments Skin Check Encounter Details Date Type Department Care Team (Late st Contact Info) Description 04/18/2018 11:30 AM EST Office Visit Dermatology at [place] [address] [place] [address] Jose Alberto Costello MD [facility] [address] [place] [address] Weathering nodule, unspecified laterality; Dermatofibroma; History of [...] 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
--- OUTSIDE RECORDS SUMMARY | 2023-12-08 00:38 | XMS_ITS | Encounter Summary ---
Author Organization [facility] [place] [address] Care Team Providers Care Fbi Field Agent Name Role Phone Rae Knight APRN Primary Care Provider + Reason for Visit * Reason Comments Skin Check * Consultation (Routine) - Specialty Diagnoses / Procedures Referred By Luly irizarry Referred To Contact Dermatology Diagnoses Other specified disorders of the skin and subcutaneous tissue Skin Lesions, Multiple Procedures Consult Rae Knight APRN [address] [place] [address] [facility] [address] [place] [address] Referral ID Status Reason Start Date Expiration Date V isits Requested Visits Authorized [id number] 06/21/2017 06/21/2018 1 1 Encounter Details Date Type Department Care Team (Late st Contact Info) Description 08/14/2017 9:30 AM EDT Office Visit Dermatology at [facility] [address] [place] [address] Call, Jose Alberto Covington MD [facility] [address] [place] [address] Neoplasm of uncertain behavior of skin Social [...] the right upper thigh years ago in [place], states that there was not further care taken regarding the area. Relevant Skin History: - Okay to leave detailed message with results? 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 Location: HDM The signing pathologist has [...] PhD, Howiefercho Verified: ??08/17/2017 ?Dermatopathologist Performed at: ??-[facility] Dept. of Pathology, [place], [place] DISCUSSION The biopsy shows features of [...] trisected. (T1) ??sns 08/17/2017 3:42 PM EDT [facility] SPECIMEN FROM SKIN / Unknown 08/14/2017 10:07 AM EDT 08/14/2017 10:07 AM EDT Jose Alberto Costello MD PATHOLOGY/CYTOLOGY O BENY Performing Organization Address [facility]/ZIP Co de Phone Number [facility] [place] [address] * Specimen to Pathology (08/14/2017 10:07 AM EDT) AP Specimen 08/14/2017 10:0 7 AM EDT 08/14/2017 1:15 PM EDT Narrative [facility] - 08/14/2017 1:15 PM EDT Specimen requisition ordered. ??Separate Pathology report to follow Resulting Agency Comment Spec In Lab Raheel Palm MD PATHOLOGY/CYTOLOGY O BENY Performing Organization Address [facility] [place] [address] documented in this encounter Visit Diagnoses Diagnosis Neoplasm of uncertain behavior of skin documented in this encounter Care Teams Fbi Field Agent Relationship Specialty Start Date End Date Rae Knight APRN [address] [place] [address] PCP - General Family Medicine 06/21/17 11/03/20 documented as of this encounter
--- OUTSIDE RECORDS SUMMARY | 2023-12-08 00:38 | XMS_ITS | Encounter Summary ---
Author Organization [facility] Address [facility] [place] [address] Care Team Providers Care Bond Trader Name Role Phone Rae Knight YURI Primary Care Provider + Encounter Details Date Type Department Care Team (Late st Contact Info) Description 08/22/2017 Telephone Dermatology at [facility] [address] [place] [phone] Call, Jose Alberto Rob MD [facility] [address] [place] [address] Social History Tobacco Use Types Packs/Day Years Used Date Smoking Tobacco: Never Smokeless Tobacco: Never Sex and Gender Information Value Date Recorded Sex Assigned at Not on file Gender Identity Not on file Sexual Orientation Not on file documented as of this encounter Miscellaneous Notes * Telephone Encounter - CallJose Alberto - 08/22/2017 4:16 PM EDT Called [...] on filedocumented in this encounter Care Teams Bond Trader Relationship Specialty Start Date End Date Rae Knight APRN [address] [place] [address] PCP - General Family Medicine 06/21/17 11/03/20 documented as of this encounter
--- OUTSIDE RECORDS SUMMARY | 2023-12-08 00:38 | XMS_ITS | Encounter Summary ---
[place] [address] Care Team Providers Care Top Lift Cutter Name Role Phone Minerva Cuellar APRN Primary Care Provider [phone] Encounter Details Date Type Department Care Team [...] on filedocumented in this encounter Care Teams Top Lift Cutter Relationship Specialty Start Date End Date Minerva Cuellar APRN [address] [place] [address] PCP - General Family Medicine 11/04/20 documented as of this encounter
--- OUTSIDE RECORDS SUMMARY | 2023-12-08 00:38 | XMS_ITS | Encounter Summary ---
Author Organization [facility] [place] [address] Care Team Providers Care Sandwich Board Carrier Name Role Phone Rae Knight APRN Primary Care Provider + Encounter Details Date Type Department Care Team (Late st Contact Info) Description 08/21/2017 Telephone Dermatology at [facility] [address] [place] [address] Jose Alberto Costello MD [facility] [address] [place] [address] Social History Tobacco Use Types Packs/Day Years [...] on filedocumented in this encounter Care Teams Sandwich Board Carrier Relationship Specialty Start Date End Date Rae Knight APRN [address] [place] [address] PCP - General Family Medicine 06/21/17 11/03/20 documented as of this encounter
--- OUTSIDE RECORDS SUMMARY | 2023-12-08 00:38 | XMS_ITS | Encounter Summary ---
[place] [address] Care Team Providers Care Studio Sales Associate Name Role Phone Rae Knight APRN Primary Care Provider + Encounter Details Date Type Department Care Team (Late st Contact Info) Description 09/05/2017 Telephone Dermatology at [facility] [address] [place] [address] Alberto Palm MD [address] [facility] [place] [address] Social History Tobacco Use Types Packs/Day Years [...] this phone call at earliest convenience at [phone]. documented in this encounter Plan of Treatment Not on file documented as of this encounter Visit Diagnoses Not on filedocumented in this encounter Care Teams Studio Sales Associate Relationship Specialty Start Date End Date Rae Knight APRN [address] [place] [address] PCP - General Family Medicine 06/21/17 11/03/20 documented as of this encounter
--- OUTSIDE RECORDS SUMMARY | 2023-12-08 00:38 | XMS_ITS | Encounter Summary ---
Author Organization [facility] [place] [address] Care Team Providers Care Precision Lens Centerer And Edger Name Role Phone ChicaRae killian YURI Primary Care Provider + Reason for Visit * Reason Comments Procedure Encounter Details Date Type Department Care Team (Late st Contact Info) Description 09/13/2017 8:00 AM EDT Procedure visit Dermatology at [facility] [address] [place] [address] Alberto Palm MD [address] [facility] [place] [address] Dysplastic nevus (Primary Dx) Social History Tobacco [...] Alberto Palm MD during the day at [phone] Nurse: Sarina After 5 PM and on weekends, please call the hospital number , and ask for the Traveling Repair Accountant radio electronics officer. documented in this encounter Progress Notes * Alberto Palm MD - 09/19/2017 9:17 AM EDT [id number] ? Skin, upper back left of midline, ?? excision: ?1. ??Scar, consistent with prior surgical procedure. ?2. ??There is no residual atypical melanocytic proliferation (see discussion). DISCUSSION Slides of the patient ??'s prior biopsy ([id number]) have been reviewed. Completely excised. No additional [...] upper back left of midline Pathology Results [id number] ?? Skin, left upper midline back, shave [...] consent signed. Surgeon: Alberto Palm MD, FAAD Digital Advertising Specialist: Sarina Atkinson CMA Blood Thinner [x] Denies [...] Alberto Palm MD FAAD Section of Dermatology [facility] documented in this encounter Plan of Treatment [...] PATHOLOGY/CYTOLOGY O RDERABLES [facility] [place] [address] * Surgical Pathology Report (09/13/2017 8:53 AM EDT) Final Diagnosis [id number] ? Location: HDM The signing pathologist has [...] Claudine Verified: ??09/18/2017 ?Dermatopatholog ist Performed at: ??-[facility] Dept. of Pathology, [place], [place] DISCUSSION Slides of the patient ??'s prior biopsy ([id number]) have been reviewed. CLINICAL INFORMATION Specimen Submitted: A - Upper back left of midline, excision (1) Clinical History and Diagnosis: Severely dysplastic nevus 5 x 7 mm pink atrophic papule with slight scale, [id number] SPECIMEN PROCESSING A - Labeled/Fixative: L upper [...] PATHOLOGY/CYTOLOGY O ROMEOERAISH [facility] [place] [address] documented in this encounter Visit Diagnoses Diagnosis Dysplastic nevus- Primary Benign neoplasm of skin, site unspecified documented in this encounter Care Teams Precision Lens Centerer And Edger Relationship Specialty Start Date End Date Rae Knight APRN [address] [place] [address] PCP - General Family Medicine 06/21/17 11/03/20 documented as of this encounter
--- OUTSIDE RECORDS SUMMARY | 2023-12-08 00:38 | XMS_ITS | Encounter Summary ---
Author Organization [facility] Address [address] [place] [address] Care Team Providers Care Building Surveyor Name Role Phone Unavailable Primary Care Provider Unavailabl e Encounter Details Date Type Department Care Team (Latest Contact Info) Description 11/07/2022 Lab Requisition [facility] Pathology & Laboratory Medicine - [facility] [address] [place] [address] Minerva Cuellar FNP [address] [place] [phone] Encounter for gynecological examination (general) (routine) without [...] Risk types, PCR Negative Negative 11/17/2022 17:53 [facility] Comment:No E6 or E7 mRNA is detected from HPV types 16,18,31,33,35,39,45,51,52,56,58,59,66, and 68 by automotive upholsterer mediated amplification. Pap Test CERVIX UTERI STRUCTURE / Unknown 11/04/2022 8:46 EDT 11/17/2022 9:30 EDT Minerva Cuellar ENTRY LEVEL SALES REPRESENTATIVE MICROBIOLOGY - GENER AL ORDERABLES [facility] [address] [place] [address] * PAP TEST (11/04/2022 8:46 EDT) Specimens A. Cervix and/or Endocervix , ThinPrep Imaging System with Manual Evaluation 11/17/2022 17:53 [facility] Specimen Adequacy Satisfactory for Evaluation - assessment of transformation zone component not applicable ( e.g. atrophy, vaginal sample, hysterectomy) Scant squamous epithelial component due to contaminant, possibly lubricant or other vaginal contaminant. 11/17/2022 17:53 [facility] General Categorization Negative for intraepithelial lesion or malignancy 11/17/2022 17:53 [facility] Attestation . 11/17/2022 17:53 [facility] at 1753 Clinical History See below 11/18/19 17:53 [facility] HPV The result for the Human Papillomavirus (HPV) Detection-High Risk Types is Negative. No E6 or E7 mRNA is detected from HPV types 16,18,31,33,35,39 ,45,51,52,56,58,5 9,66, and 68 by automotive upholsterer mediated amplification.Lacy ting was performed on specimen [id number] and was resulted on 11/17/2022 1753 EDT by TYLER, LAB INSTRUMENT RESULTS IN 11/17/2022 17:53 T [facility] Performing Lab [facility] 11/17/2022 17:53 EDT [facility] Scanned Images 11/17/2022 17:53 EDT [facility] Pap Test CERVIX UTERI STRUCTURE / Unknown 11/04/2022 8:46 EDT 11/07/2022 14:38 EDT Minerva Cuellar ENTRY LEVEL SALES REPRESENTATIVE PATHOLOGY ORDERABLES Performing Organization Address City/State/[facility] Co de Phone Number [facility] [address] [place] [address] documented in this encounter Visit Diagnoses Diagnosis Encounter for gynecological examination (general) (routine) without abnormal findings Encounter for screening for malignant neoplasm of cervix Screening for malignant neoplasm of the cervix Encounter for general adult medical examination without abnormal findings Unspecified general medical examination documented in this encounter
--- OUTSIDE RECORDS SUMMARY | 2023-12-08 00:38 | XMS_ITS | Referral Summary ---
Author Organization [facility] Address [address] [place] [address] Care Team Providers Care Janitorial Manager Name Role Phone Unavailable Primary Care Provider [...]
--- NOTE | 2023-12-08 10:45 | DI.MAMMO_ITS ---
Exam(s) MAMMO SCREENING EXAM: MAMMO SCREENING CLINICAL HISTORY: SCREENING MAMMO Z12.31. TECHNIQUE: Bilateral full field digital CC and MLO mammographic images were obtained with 3D tomosyn thesis and utilizing computer aided detection (CAD). COMPARISON: Prior mammograms were reviewed. FINDINGS: There has been no significant change in the appearance and distribution of the fibroglandular tissue. No new findings in the immediate vicinity of biopsy marker clip in the upper-outer quadrant of the le ft breast. There are no new spiculated masses nor malignant appearing microcalcification groups. There is no significant architectural distortion nor skin thickening-retraction. IMPRESSION: No radiographic evidence of malignancy. BI-RADS Category 1 - Negative Breast Density - Category B - Scattered areas of fibroglandular density Breast density Category C or D implies that the patient has dense breast tissue. Dense breast tissue can make it harder to find cancer on a mammogram. Dense breast tissue is also associated with an incr eased risk of breast cancer. This information about the result of the mammogram report was provided to the patient to raise their awareness. Use this report when you speak with the patient about their risks for breast cancer, which includes their family history. At that time, you may recommend additional screening tests (Ultrasoun d or MRI) as these tests may add significant information. A negative radiographic report should not delay biopsy if a dominant or clinically suspicious mass is present. Up to ten percent of cancers are not identified on mammography. A negative report may reinforce clinical impression. Adenosis and dense breasts may obscure an underlying neoplasm. False positive reports average 6 to 10%. Patient will receive a letter notifying them of these results.
== END 2023-12-08 00:54 ==
LOC: DI 00:34
PROVIDERS: PCP Nurse Practitioner Family; Visit Provider Nurse Practitioner Family
DX: Z12.31 Encounter for screening mammogram for malignant neoplasm of breast (principal)
CPT/HCPCS: 77063; 77067

== ENCOUNTER 2024-11-27 15:16 | Outpatient (REF) | payer OTHER, SELFPAY ==
[2024-11-27 21:17] LABS: HCT 38.4 % (36.0-46.0); HGB 12.6 g/dL (11.2-15.7); MCH 28.8 pg (27.0-33.0); MCHC 32.8 % (32.0-36.0); MCV 88 fL (80-95); MPV 11.0 fL (8.0-11.0); Platelet Count 310 10^3/uL (130-400); RBC 4.38 10^6/uL (3.93-5.22); RDW 14.2 % (11.7-14.6); RDW-SD 46.1 fL; WBC 6.40 10^3/uL (4.4-10.8)
[2024-11-27 21:30] LABS: ALT 31 U/L (14-59); AST 18 U/L (15-37); Albumin 4.1 g/dL (3.4-5.0); Alkaline Phosphatase 75 U/L (46-116); Anion Gap 8.5 mmol/L (3-11); BUN 10 mg/dL (7-18); Bilirubin, Total 0.5 mg/dL (0.2-1.0); CO2 29.5 mmol/L (21.0-32.0); Calcium 9.2 mg/dL (8.5-10.1); Calculated LDL 124 mg/dL (<100); Chloride 102 mmol/L (98-107); Cholesterol 241 mg/dL (<200); Estimated GFR 102.69 (mL/min/1.73m2); Glucose 80 mg/dL (74-106); HDL Cholesterol 100 mg/dL (>or=50); Potassium 4.1 mmol/L (3.5-5.1); Sodium 140 mmol/L (136-145); Total Protein 6.8 g/dL (6.4-8.2); Triglyceride 87 mg/dL (<150)
== END 2024-11-27 15:17 | disposition home or self-care (01) ==
LOC: NCHCN 15:16
PROVIDERS: PCP Nurse Practitioner Family; Visit Provider Nurse Practitioner Family
DX: Z00.00 Encounter for general adult medical examination without abnormal findings (principal)
CPT/HCPCS: 80053; 80061; 85027

== ENCOUNTER 2024-12-10 00:52 | Outpatient (CLI) | payer OTHER, SELFPAY ==
--- NOTE | 2024-12-10 | DI.MAMMO_ITS ---
Exam(s) MAMMO SCREENING EXAM: MAMMO SCREENING CLINICAL HISTORY: SCREENING,Z12.31. TECHNIQUE: Bilateral full field digital CC and MLO mammographic images were obtained with 3D tomosynthesis and utilizing computer aided detection (CAD). COMPARISON: Prior mammograms were reviewed. FINDINGS: There has been no significant change in the appearance and distribution of the fibroglandular tissue. No new findings in the immediate vicinity of a biopsy marker device in the left breast. There are no new spiculated masses nor new malignant appearing microcalcification groups. There is no significant architectural distortion nor skin thickening-retraction. IMPRESSION: No radiographic evidence of malignancy. BI-RADS Category 1 - Negative Breast Density - Category B - There are scattered areas of fibroglandular density. Breast density Category C or D implies that the patient has dense breast tissue. Dense breast tissue can make it harder to find cancer on a mammogram. Dense breast tissue is also associated with an increased risk of breast cancer. This information about the result of the mammogram report was provided to the patient to raise their awareness. Use this report when you speak with the patient about their risks for breast cancer, which includes their family history. At that time, you may recommend additional screening tests (Ultrasound or MRI) as these tests may add significant information. A negative radiographic report should not delay biopsy if a dominant or clinically suspicious mass is present. Up to ten percent of cancers are not identified on mammography. A negative report may reinforce clinical impression. Adenosis and dense breasts may obscure an underlying neoplasm. False positive reports average 6 to 10%. Patient will receive a letter notifying them of these results.
== END 2024-12-10 01:12 ==
LOC: DI 00:53
PROVIDERS: PCP Nurse Practitioner Family; Visit Provider Nurse Practitioner Family
DX: Z12.31 Encounter for screening mammogram for malignant neoplasm of breast (principal)
CPT/HCPCS: 77063; 77067